=== PATIENT | male | born 1990 | race Caucasian/White ===

== ENCOUNTER 2017-10-04 22:01 | Emergency (ER) | payer OTHER ==
[~2017-10-04] VITALS: Ht 172.7 cm; Wt 95.5 kg
[2017-10-04 22:43] LABS: HEMATOCRIT 39.5 % (38.0-50.0); HEMOGLOBIN 13.4 G/DL (12.5-16.6); MCH 30.5 PG (29.0-34.0); MCHC 33.9 G/DL (30.0-36.0); PLATELET COUNT 234 K/uL (156-360); RBC DIS.WIDTH-CV 12.3 % (11.8-14.6); RBC DIS.WIDTH-SD 40.5 % (39-53); RED BLOOD COUNT 4.39 M/uL (4.00-5.50); WHITE BLOOD COUNT 8.8 K/uL (4.1-10.2)
[2017-10-04 22:51] LABS: ALBUMIN 4.2 g/dL (3.2-4.8)
[2017-10-04 22:52] LABS: CHLORIDE 108 mEq/L (99-109); POTASSIUM 3.7 mEq/L (3.7-5.4); SODIUM 145 mEq/L (136-147)
[2017-10-04 22:54] LABS: GLUCOSE 105 mg/dL (70-99)
[2017-10-04 22:57] LABS: ALKALINE PHOSPHATASE 96 IU/L (3-129)
[2017-10-04 22:58] LABS: CREATININE 1.4 mg/dL (0.6-1.3); GFR ESTIMATE (CALCULATED) > 59 mL/min/ (58.99-99999)
[2017-10-04 22:59] LABS: AST (GOT) 17 IU/L (2-34); UREA NITROGEN (BUN) 9 mg/dL (9-23)
[2017-10-04 23:00] LABS: ALT (GPT) 12 IU/L (3-49)
[2017-10-04 23:15] LABS: TOTAL BILIRUBIN 0.3 mg/dL (0.0-1.0)
[2017-10-04 23:24] LABS: TROP-I INTERPRETATION NEGATIVE; TROPONIN-I < 0.01 ng/mL (0.0-0.30)
[2017-10-04] MEDS ORDERED: TEGRETOL200 MG PO (23:40)
[2017-10-04 23:57] VITALS: BP 130/85
== END 2017-10-05 00:29 | disposition home or self-care (01) ==
LOC: EME 22:01
PROVIDERS: Emergency Medicine
DX: G40.909 Epilepsy, unspecified, not intractable, without status epilepticus (principal); Z91.14 Patient's other noncompliance with medication regimen; R07.9 Chest pain, unspecified; R42 Dizziness and giddiness; M54.2 Cervicalgia
CPT/HCPCS: 80053; 84484; 85027; 93005; 99281; 99284